=== PATIENT | female | born 1960 | race Caucasian/White ===

== ENCOUNTER → 2021-08-22 | Day surgery (SDC) | payer OTHER ==
[~2021-08-22] VITALS: Ht 167.6 cm; Wt 67.6 kg
[~2021-08-22] MED LIST: ADDERALL 20 MG20 MG PO; CELEXA20 MG PO; EVEKEO PO; FLEXERIL10 MG PO; HYDROCODONE-APA1 TAB PO; IBUPROFEN800 MG PO; NORCO 5-325 TA1 EACH PO; NORVASC5 MG PO; ONDANSETRON ODT8 MG PO; PERCOCET 5-3251 EACH PO; PRILOSEC20 MG PO; ZESTORETIC 10-1 EACH PO
[2021-08-22 11:16] LABS: HCT 36.6 % (37.0-47.0); HGB 12.1 g/dl (12.5-16.0); MCH 32.4 pg (25.0-31.0); MCHC 33.1 g/dL (32.0-36.0); MCV 97.9 fL (78.0-100.0); MPV 9.9 fL (6.0-9.5); RBC 3.74 M/uL (4.20-5.40); RDW 13.5 % (11.5-14.0); WBC 6.1 K/uL (4.0-10.5)
[2021-08-22 11:22] LABS: ALBUMIN 3.7 g/dL (3.4-5.0); BILIRUBIN - TOTAL 0.3 mg/dL (0.2-1.0); BUN/CREAT RATIO (CALC) 19.3 RATIO; CREATININE 0.57 mg/dL (0.51-0.95); GLOBULIN (CALCULATION) 3.4 g/dL; POTASSIUM 3.6 mmol/L (3.5-5.1); TOTAL PROTEIN 7.1 g/dL (6.4-8.2)
== END | disposition home or self-care (01) ==
LOC: FAS 09:24
PROVIDERS: Surgery
DX: K40.30 Unilateral inguinal hernia, with obstruction, without gangrene, not specified as recurrent (principal); I10 Essential (primary) hypertension; K21.9 Gastro-esophageal reflux disease without esophagitis; F90.9 Attention-deficit hyperactivity disorder, unspecified type; F41.9 Anxiety disorder, unspecified; F17.210 Nicotine dependence, cigarettes, uncomplicated; Z88.4 Allergy status to anesthetic agent; Z79.899 Other long term (current) drug therapy
CPT/HCPCS: 36415; 80053; 93005; C1727; C1781; J0690; J1170; J2250; J2405; J2704; J3010; J7120